=== PATIENT | male | born 1995 | race Caucasian/White ===

== ENCOUNTER 2017-12-01 17:32 | Emergency (ER) | payer OTHER ==
[2017-12-01 18:24] VITALS: BP 152/71
--- NOTE | 2017-12-01 19:13 | ED Physician Documentation ---
General Adult - HISTORIAN Historian: patient - HPI Stated Complaint: Right testicular pain Chief Complaint: General Adult Onset: days ago Timing: still present Severity: moderate Further Comments: yes (Pt is a 22 yo male with R-sided testicular pain. Pain has been occurring for several months, sometimes very intense. Pain has been getting worse and today was 9/10 in severity. Pain now radiates from the testicle up into his R side. No dysuria or discharge. No family hx testicular problems. Pt has hx IBS, depression, and has had some high blood pressure readings. Pt has been fearful to have this problem checked out, and has been putting it off.) - ROS CONST: no problems EYES/ENT: none CVS/RESP: none GI/: other (R testicular pain) MS/SKIN/LYMPH: none - PAST HX Past History: other (IBS, depression, some high blood pressure readings.) Allergies/Adverse Reactions: Allergies Allergy/AdvReac Type Severity Reaction Status Date / Time amoxicillin Allergy Mild Nausea/Vomi Verified 12/01/17 19:14 ting Home Medications: Ambulatory Orders Medication Instructions Recorded Buspirone HCl [Buspar] 10 mg PO BID u2 11/30/17 Citalopram Hydrobromide [Celexa] 40 mg PO DAILY u2 11/30/17 - SOCIAL HX Smoking History: non-smoker - FAMILY HX Family History: No - VITAL SIGNS Vital Signs: Vital Signs Temp Pulse Resp BP Pulse Ox 98.0 F 78 16 152/71 98 12/01/17 17:45 12/01/17 17:45 12/01/17 17:45 12/01/17 17:45 12/01/17 17:45 - REVIEWED ASSESSMENTS Nursing Assessment Reviewed: Yes Vitals Reviewed: Yes Progress - Progress Progress: Transfer to [facility] for scrotal u/s, Dr. Shelton. General Adult Physical Exam - PHYSICAL EXAM GENERAL APPEARANCE: moderate distress NECK: normal inspection, supple RESPIRATORY: no resp distress, chest non-tender, breath sounds normal CVS: reg rate & rhythm, heart sounds normal ABDOMEN: soft, no organomegaly, normal bowel sounds, other (Genital exam: R testical with mass (? varicocele or cyst, lower pole) tender, no redness; cremasteric reflex not elicited.) BACK: normal inspection, no CVA tenderness SKIN: warm/dry, normal color EXTREMITIES: non-tender, normal range of motion NEURO: oriented X3, motor nml, sensation nml Discharge Clincal Impression: Right testicular pain Referrals: Primary Doctor,No [Primary Care Provider] - Condition: Stable Disposition: 02 XFER SHT-TRM HOSP Decision to Admit: NO Decision Time: 19:36
== END 2017-12-01 19:34 | disposition short-term general hospital (02) ==
LOC: ED 17:32
DX: N50.819 Testicular pain, unspecified (principal)
CPT/HCPCS: 99282

== ENCOUNTER 2018-05-29 10:41 | Outpatient (CLI) | payer OTHER ==
[2018-05-29 11:20] LABS: eGFR (African) > 60; eGFR (Non-African) > 60
== END 2018-05-29 10:43 ==
LOC: LAB 10:41
PROVIDERS: ATTEND Physician Assistant
DX: R10.84 Generalized abdominal pain (principal); R19.7 Diarrhea, unspecified; R11.0 Nausea
CPT/HCPCS: 36415; 80053; 82784

== ENCOUNTER 2018-06-11 07:51 | Outpatient (CLI) | payer OTHER ==
--- NOTE | 2018-06-11 13:26 | Diagnostic Imaging Report ---
JHONATAN MUÑOZ [facility] [address] [facility].[address] [address] Report Submission Date: Jun 11, 2018 10:26:02 AM CDT Patient Study Name: LUKAS COX Date: Jun 11, 2018 8:10:38 AM CDT Modality Type: US Gender: M Description: RU : 97 Institution: [facility] Physician: JHONATAN MUÑOZ ULTRASOUND ABDOMEN LIMITED HISTORY: Right upper quadrant pain for years Transverse and longitudinal images were obtained through the right upper quadrant. No pancreatic abnormalities are noted. The liver demonstrates homogeneous echotexture without evident mass. The gallbladder is normal without gallstones or gallbladder wall thickening. The common duct is normal in caliber measuring 4.9 mm. The right kidney measures 10.4 cm in length and demonstrates no hydronephrosis or evident mass. IMPRESSION: NORMAL RIGHT UPPER QUADRANT ULTRASOUND. Electronically signed on Jun 11, 2018 10:26:02 AM CDT by: Mattie PINK
== END 2018-06-11 07:52 ==
LOC: RAD 07:51
PROVIDERS: ATTEND Physician Assistant
DX: R10.11 Right upper quadrant pain (principal)
CPT/HCPCS: 76705

== ENCOUNTER 2018-12-27 16:10 | Emergency (ER) | payer OTHER ==
--- NOTE | 2018-12-27 16:41 | ED Physician Documentation ---
General Adult - HISTORIAN Historian: patient - HPI Chief Complaint: Abdominal Pain Additional Information: Patient states that last night he developed some RLQ abd pain. No nausea or vomiting noted. NO problems with BM, no blood,constipation or diarrhea. No trouble with urination. No fever or chills noted. Walking tends to make the pain worse. Nothing seems to help the pain. No precipitating factor noted. No fever or chills noted. Patient states that he has been having some intermittent right testicular pain for several months. Has been evaluated with US and no specific abnl noted. Denies any swelling to testicle. No urethral discharge noted. Onset: hours (18 hours) Timing: still present Severity: moderate Modifying Factors: none Context: no precipitating factor noted Quality: achy/crampy sensation with some burning component at times. Location: RLQ - ROS CONST: no problems. denies: fever, chills EYES/ENT: none CVS/RESP: none GI/: abdominal pain. denies: problems urinating, vomiting, nausea, diarrhea, black stools - PAST HX Past History: none Other History: other (IBS, anxiety, depression) Surgeries/Procedures: none Immunizations: referred to PCP Allergies/Adverse Reactions: Allergies Allergy/AdvReac Type Severity Reaction Status Date / Time amoxicillin Allergy Mild Nausea/Vomi Verified 12/01/17 19:14 ting Home Medications: Ambulatory Orders Medication Instructions Recorded Ketorolac Tromethamine [Toradol] 10 mg PO Q6H PRN #10 tablet 12/27/18 - SOCIAL HX Smoking History: non-smoker Alcohol Use: none Drug Use: marijuana - FAMILY HX Family History: No - VITAL SIGNS Vital Signs: Vital Signs Temp Pulse Resp BP Pulse Ox 152/71 12/01/17 19:34 - REVIEWED ASSESSMENTS Nursing Assessment Reviewed: Yes General Adult Physical Exam - PHYSICAL EXAM GENERAL APPEARANCE: mild distress EENT: ENT inspection normal, pharynx normal, no signs of dehydration NECK: normal inspection, thyroid normal, supple RESPIRATORY: no resp distress, chest non-tender, breath sounds normal. No: wheezes, rales, rhonchi CVS: reg rate & rhythm, heart sounds normal, equal pulses, no murmur ABDOMEN: soft, no organomegaly, normal bowel sounds, no distension, tenderness (RLQ). No: rebound, guarding SKIN: warm/dry, normal color EXTREMITIES: non-tender, normal range of motion, no evidence of injury, no edema NEURO: oriented X3, CN's nml as tested, motor nml, sensation nml Discharge Clincal Impression: Abdominal pain Prescriptions: Ketorolac Tromethamine [Toradol] 10 mg PO Q6H PRN #10 tablet PRN Reason: pain Referrals: Primary Doctor,No [Primary Care Provider] - 2 Days Additional Instructions: Take toradal as needed for pain. Watch for fever or chills. If symptoms get worse to return to the ED. Watch for blood in your urine. Condition: Stable Disposition: 01 HOME, SELF-CARE Decision to Admit: NO Date of Decison to Admit: 12/27/18 Decision Time: 18:54
[2018-12-27] MEDS ORDERED: KETOROLAC TROMETHAMINE 15 MG/ML VIAL IV ONE (16:44)
[2018-12-27] MEDS ORDERED: 0.9 % SODIUM CHLORIDE 1,000 ML IV SCH (16:45)
[2018-12-27] MEDS ORDERED: 0.9 % SODIUM CHLORIDE 1,000 ML IV ONE (17:15)
[2018-12-27 17:49] LABS: MEAN CORPUSCULAR HEMOGLOBIN 30.8 pg (28.0-34.0); MONOCYTES % 5.3 % (0.0-11.0)
[2018-12-27 17:50] LABS: BASOPHILS % 0.9 (0.0-1.5); EOSINOPHILS % 1.9 % (0.0-6.8)
[2018-12-27 18:00] LABS: eGFR (Non-African) > 60
[2018-12-27 18:27] VITALS: BP 161/102
[2018-12-27 18:46] LABS: APPEARANCE,URINE CLEAR (CLEAR); COLOR,URINE YELLOW (YELLOW); OCCULT BLOOD,URINE 1+ (NEGATIVE); UROBILINOGEN URINE 0.2 Eu (0.2-1.0)
--- NOTE | 2018-12-28 04:53 | Diagnostic Imaging Report ---
TED MONET [facility] [address] Counts Include [address] Beds At [facility] [address] [place], [place]. [address] Report Submission Date: Dec 27, 2018 6:19:15 PM CDT Patient Study Name: LUKAS COX Date: Dec 27, 2018 5:30:38 PM CDT Modality Type: CT\SR Gender: M Description: CT ABD PELVIS W/ CON : 97 Institution: [facility] Physician: TED MONET CT abdomen and pelvis with contrast CLINICAL HISTORY: CT A/P W/ CONTRAST, RLQ ABD PAIN X2-3 DAYS, NO KNOWN ABDOMINAL SURGERIES OR INJURIES (Hx) / ITS.REASON RLQ abd pain Note time : 12/27/2018 6:55:23 PM User : Caron Ray CT A/P W/ CONTRAST, RLQ ABD PAIN X2-3 DAYS, NO KNOWN ABDOMINAL SURGERIES OR INJURIES (DICOM Hx) TECHNIQUE: 5 mm contiguous axial images of the abdomen and pelvis with IV contrast. With; 95 CC OMNIPAQUE @ 2.5ML/S FINDINGS: Abdomen: The liver, pancreas and spleen are normal in appearance. The gallbladder is unremarkable. Bilateral nonobstructing kidney stones are noted measuring 2 to 3 mm. The aorta is normal in caliber. The small bowel is nondistended. There is no evidence of free air or free fluid. Pelvis: The colon is normal in appearance. The distal ureters and bladder are normal. There is no evidence of free air or free fluid. The sigmoid colon and rectum are normal. Appendix is normal. No destructive osseous lesions IMPRESSION: No evidence of acute abdominal or pelvic visceral process Nephrolithiasis Electronically signed on Dec 27, 2018 6:19:15 PM CDT by: David PINK
== END 2018-12-27 19:16 | disposition home or self-care (01) ==
LOC: ED 16:10
DX: R10.31 Right lower quadrant pain (principal)
CPT/HCPCS: 36415; 74177; 80053; 81002; 83690; 85025; 96374; 99283; 99284; J7030; Q9967; S1016

== ENCOUNTER 2019-03-28 05:00 | Emergency (ER) | payer OTHER ==
[2019-04-07 17:48] LABS: eGFR (Non-African) > 60
[2019-04-07 17:49] LABS: BASOPHILS % 0.7 % (0.0-1.5); NEUTROPHILS # 3.6 # k/uL (1.4-7.7)
--- NOTE | 2019-05-28 08:26 | Diagnostic Imaging Report ---
JOEL LANG [facility] [address] [facility] [address] [place], [place]. [address] Report Submission Date: Mar 28, 2019 6:33:32 AM CDT Patient Study Name: LUKAS COX Date: Mar 28, 2019 6:09:45 AM CDT Modality Type: CT\SR Gender: M Description: CT ABDOMEN/PELVIS W/O : 97 Institution: [facility] Physician: JOEL LANG CT ABDOMEN AND PELVIS WITHOUT CONTRAST HISTORY: Known stones. Right-sided pain hematuria. Comparison: None TECHNIQUE: Helically acquired images were obtained from the hemidiaphragms to the pelvic floor without IV contrast using a stone protocol. FINDINGS: There are numerable stones within the right kidney. The largest of these measures 4 mm. There are approximately 5 stones within left kidney with the largest of these measuring 4 mm. No ureteral stones are noted but there is a 4 mm stone posteriorly within the right aspect of the bladder. The appendix is normal. There is mild constipation with increased stool mostly in the right and transverse colon. The abdominal aorta is normal in caliber. The seminal vesicles and prostate gland are unremarkable. Lung bases are clear. Chronic bilateral L5 pars defects are present without spondylolisthesis. Impression: Multiple bilateral intrarenal stones are present as described. There is no hydronephrosis or hydroureter. There is a 4 mm stone within the right posterior bladder. Mild constipation. Normal appendix. Chronic bilateral L5 pars defects Electronically signed on Mar 28, 2019 6:33:32 AM CDT by: Mattie PINK
== END 2019-03-28 07:53 ==
LOC: ED 05:00
DX: R61 Generalized hyperhidrosis (principal); R11.2 Nausea with vomiting, unspecified
CPT/HCPCS: 74176; 80053; 82150; 83690; 85025; 99282; S1016

== ENCOUNTER 2019-04-02 14:00 | Outpatient (CLI) | payer OTHER | END 2019-04-02 14:05 | disposition home or self-care (01) | LOC: LABRHC 14:00 | PROVIDERS: ATTEND Family Medicine | DX: N20.0 Calculus of kidney (principal) | CPT/HCPCS: 80377; 82365; G0481 ==

== ENCOUNTER 2019-04-02 16:47 | Outpatient (CLI) | payer OTHER | END 2019-04-02 16:52 | disposition home or self-care (01) | LOC: LAB 16:47 | PROVIDERS: ATTEND Family Medicine ==

== ENCOUNTER 2019-04-15 15:52 | Outpatient (CLI) | payer OTHER ==
[2019-04-14 14:11] VITALS: BP 121/85
[2019-04-15 16:02] LABS: BASOPHILS % 0.7 % (0.0-1.5); NEUTROPHILS # 4.7 # k/uL (1.4-7.7)
== END 2019-04-15 15:54 ==
LOC: LAB 15:52
PROVIDERS: ATTEND Family Medicine
DX: R10.84 Generalized abdominal pain (principal)
CPT/HCPCS: 36415; 85025

== ENCOUNTER 2019-04-16 17:15 | Emergency (ER) | payer SELFPAY ==
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
[2019-04-16 18:05] VITALS: BP 137/82
[2019-04-16] MEDS ORDERED: CYCLOBENZAPRINE HCL 10 MG TABLET PO ONE (18:57)
[2019-04-16] MEDS ORDERED: KETOROLAC TROMETHAMINE 60 MG/2 ML VIAL IM ONE (18:57)
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
[2019-04-17 09:44] LABS: APPEARANCE,URINE CLEAR (CLEAR); COLOR,URINE YELLOW (YELLOW); OCCULT BLOOD,URINE 1+ (NEGATIVE); PH URINE 5.5 (5.0 - 8.0); UROBILINOGEN URINE 0.2 Eu (0.2-1.0)
== END 2019-04-16 19:19 | disposition home or self-care (01) ==
LOC: ED 17:15
DX: S19.9XXA Unspecified injury of neck, initial encounter (principal); S39.92XA Unspecified injury of lower back, initial encounter; S09.90XA Unspecified injury of head, initial encounter; V89.2XXA Person injured in unspecified motor-vehicle accident, traffic, initial encounter; Y99.8 Other external cause status
CPT/HCPCS: 70450; 72125; 72131; 81002; 96372; 99284

== ENCOUNTER 2019-07-26 07:23 | Emergency (ER) | payer OTHER ==
[2019-07-26] MEDS ORDERED: PROMETHAZINE HCL 25 MG/ML VIAL ONE (07:30)
[2019-07-26] MEDS ORDERED: fentaNYL CITRATE/PF 100 MCG/2 ML INJ. ONE (07:30)
[2019-07-26] MEDS ORDERED: NORMAL SALINE 1,000 ML IV.SOLN IV ONE (07:30)
[2019-07-31 14:32] LABS: BASOPHILS % 0.6 % (0.0-1.5); NEUTROPHILS # 9.6 # k/uL (1.4-7.7)
[2019-07-31 14:33] LABS: eGFR (Non-African) > 60
[2019-07-31 14:34] LABS: APPEARANCE,URINE CLEAR (CLEAR); COLOR,URINE YELLOW (YELLOW); OCCULT BLOOD,URINE 3+ (NEGATIVE); UROBILINOGEN URINE 0.2 Eu (0.2-1.0)
--- NOTE | 2019-08-18 13:49 | Diagnostic Imaging Report ---
AKI CUNNINGHAM [facility] [id number] [facility] [address] [address] Report Submission Date: Jul 26, 2019 8:28:40 AM CDT Patient Study Name: LUKAS COX Date: Jul 26, 2019 7:51:59 AM CDT Modality Type: CT\SR Gender: M Description: CT ABD/PELVIS W/CONT : 97 Institution: [facility] Physician: AKI CUNNINGHAM CT abdomen and pelvis with intravenous contrast History: Abdominal pain Technique: Images through the abdomen and pelvis were obtained following intravenous contrast administration. Findings: The lung bases are clear. Liver, gallbladder, spleen, pancreas, kidneys and adrenal glands are normal. There is no hydronephrosis or hydroureter. Right internal urethral stent is present and appears in good position. There is no free air or fluid. There is no bowel obstruction. Appendix is not identified with confidence. Impression: Right internal ureteral stent in appropriate position. No abnormality identified. Electronically signed on Jul 26, 2019 8:28:40 AM CDT by: Avelino PINK
== END 2019-07-26 09:27 ==
LOC: ED 07:23
DX: R10.9 Unspecified abdominal pain (principal)
CPT/HCPCS: 74177; 80053; 81002; 85025; 99283; 99284; J2550; J3010; J7030; Q9967; S1016

== ENCOUNTER 2019-07-29 16:59 | Emergency (ER) | payer OTHER ==
--- NOTE | 2019-07-29 17:33 | ED Physician Documentation ---
Flank Pain - HISTORIAN Historian: patient - HPI Stated Complaint: R Kidney pain Chief Complaint: Flank Pain Additional Information: Patient presents to ED with right flank pain. Patient states he had stent place in right ureter on Sunday, July 25, 2019. Patient reports increased pain today. He was instructed to pull out the stent via string today, however, he has not done it. He reports he is out of pain medications from his procedure. Onset: hours (12) Duration: constant Timing: still present Context: denies: out of country travel Severity: severe Quality: sharp, stabbing Associated Symptoms: denies: fever, chills, nausea, vomiting Exacerbated by: nothing Relieved by: nothing - ROS CONST: no problems GI/: none CVS/RESP: none EYES/ENT: none MS/SKIN/LYMPH: none NEURO/PSYCH: none - SOCIAL HX Smoking History: cigarettes Alcohol Use: none Drug Use: none - FAMILY HX Family History: none - PAST HX Past History: kidney stones Ischemic Bowel Risk Factors: none Other History: none Surgeries/Procedures: none Medications: none - VITAL SIGNS Vital Signs: Vital Signs Temp Pulse Resp BP Pulse Ox 113 H 20 148/90 98 07/29/19 17:05 07/29/19 17:05 07/29/19 17:05 07/29/19 17:05 - REVIEWED ASSESSMENTS Nursing Assessment Reviewed: Yes Vitals Reviewed: Yes Progress - Progress Progress: 1732 Patient in room facetiming in no apparent distress until RN walks in room and then is writhing in pain. [address] Pantoja, recommends remove stent then watch for a short period of time and send patient home. ED Results Lab/Radiology - Lab Results Lab Results: UA- +3 blood, +1 leukocytes, +3 protein Abdominal Pain Physical Exam - Physical Exam General Appearance: moderate distress (in pain) EENT: JV NECK: supple RESPIRATORY: no resp distress, breath sounds normal CVS: tachycardia ABDOMEN: soft, normal bowel sounds, tenderness BACK: CVA tenderness (R) SKIN: warm/dry EXTREMITIES: non-tender, no edema NEURO: oriented X3, mood/affect nml Vital Signs: Vital Signs Temp Pulse Resp BP Pulse Ox 113 H 20 148/90 98 07/29/19 17:05 07/29/19 17:05 07/29/19 17:05 07/29/19 17:05 Discharge Clincal Impression: Encounter for removal of ureteral stent Prescriptions: Scopolamine 1 each TD Q72 #6 patch.td.3 Referrals: Benoit Elise MD [Primary Care Provider] - 2 Days Additional Instructions: 1. Tylenol 650mg every 4 hours as needed for pain 2. Drink plenty of fluids to maintain proper hydration. Avoid soda, caffeine, energy drinks and alcohol 3. Follow up with Dr. Pantoja as soon as possible 4. Return to ER for new or worsening symptoms Condition: Stable Disposition: 01 HOME, SELF-CARE Decision to Admit: NO Date of Decison to Admit: 07/29/19 Decision Time: 17:49
[2019-07-29] MEDS ORDERED: HYDROmorphone HCL/PF 1 MG/ML VIAL IM ONE (17:39)
[2019-07-29 18:24] VITALS: BP 120/77
[2019-07-30 07:38] LABS: APPEARANCE,URINE TURBID (CLEAR); COLOR,URINE RED (YELLOW); OCCULT BLOOD,URINE 3+ (NEGATIVE); UROBILINOGEN URINE 0.2 Eu (0.2-1.0)
== END 2019-07-29 18:22 | disposition home or self-care (01) ==
LOC: ED 16:59
DX: Z46.6 Encounter for fitting and adjustment of urinary device (principal)
CPT/HCPCS: 81002; 96372; 99283; 99284

== ENCOUNTER 2019-08-10 05:20 | Emergency (ER) | payer OTHER ==
[2019-08-10] MEDS: 0.9 % SODIUM CHLORIDE 1,000 ML IV ONE (05:45)
[2019-08-10] MEDS: fentaNYL CITRATE/PF 100 MCG/2 ML INJ. IV ONE (05:45)
[2019-08-10] MEDS: PROMETHAZINE HCL 25 MG/ML VIAL IM STA (05:55)
[2019-08-10] MEDS: MORPHINE SULFATE 2 MG/ML VIAL IV ONE (06:00)
[2019-08-10] MEDS ORDERED: TAMSULOSIN HCL 0.4 MG CAP.ER.24H PO ONE (06:04)
[2019-08-10] MEDS: MORPHINE SULFATE 4 MG/ML VIAL IV ONE (06:08)
[2019-08-10 06:12] LABS: BASOPHILS % 0.6 % (0.0-1.5); NEUTROPHILS # 4.9 # k/uL (1.4-7.7)
[2019-08-10] MEDS: ONDANSETRON HCL/PF 4 MG/ 2ML VIAL IVP ONE (06:18)
[2019-08-10 06:20] LABS: eGFR (Non-African) > 60
[2019-08-10] MEDS: PROMETHAZINE HCL 25 MG/ML VIAL ONE (06:31)
[2019-08-10] MEDS: MORPHINE SULFATE 4 MG/ML VIAL ONE (06:31)
[2019-08-10 06:35] LABS: OCCULT BLOOD,URINE 3+ (NEGATIVE); UROBILINOGEN URINE 0.2 Eu (0.2-1.0)
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
[2019-08-10] MEDS ORDERED: MORPHINE SULFATE 4 MG/ML VIAL IV PRN (06:56)
[2019-08-10] MEDS ORDERED: ONDANSETRON HCL/PF 4 MG/ 2ML VIAL IVP PRN (06:57)
[2019-08-10] MEDS ORDERED: 0.9 % SODIUM CHLORIDE 1,000 ML IV SCH (07:00)
[2019-08-10 07:15] VITALS: BP 132/82
[2019-08-10] MEDS ORDERED: TAMSULOSIN HCL 0.4 MG CAP.ER.24H PO SCH (09:00)
== END 2019-08-10 07:14 | disposition other institution (70) ==
LOC: ED 05:20
DX: N20.0 Calculus of kidney (principal); F12.90 Cannabis use, unspecified, uncomplicated
CPT/HCPCS: 80053; 81002; 83690; 85025; 96361; 96372; 96374; 96375; 96376; 99283; 99284; J2270; J2550; J3010; J7030; S1016

== ENCOUNTER 2019-08-10 07:05 | Inpatient (IN) | payer OTHER ==
--- NOTE | 2019-08-10 08:27 | History and Physical Report ---
History of Present Illnes - History of Present Illness Reason for Visit: Abdominal pain History of Present Illness: This is a 23 year old male admitted with c/o abdominal pain. He has had multiple ER visits for flank pain and has had a renal stent placed in [place] at . He has had 7 CT scans of the abdomen and pelvis in the past year and as a result, the ER provider did not feel that it was prudent to perform another CT. It is of note that his clinic chart has a report showing multiple providers of narcotics in the past year as well as having prescriptions filled at [facility] in [place] as well as [facility] in [place]. - Past Medical History Gastrointestinal: Irritable bowel disease Psych: Anxiety - Past Surgical History Past Surgical History: None - Past Social History Smoke: 1 pack per day Alcohol: None Drugs: None (denies) Lives: Alone Domestic Violence: Negative - Health Maintenance Health Maintenance: Cholesterol Influenza Vaccine: Current for this Influenza Season Pneumonia Vaccine: Yes - Unable to Obtain History Unable to Obtain: No Review of Systems - Review of Systems Constitutional: Sweats. negative: Fever, Chills Eyes: negative: pain ENT: negative: Ear Pain Respiratory: negative: Cough Cardiovascular: negative: Chest Pain Gastrointestinal: Nausea, Vomiting, Abdominal Pain (left flank and left hemiabdomen. NABS) Genitourinary: negative: Dysuria Musculoskeletal: negative: Neck Pain, Shoulder Pain Skin: negative: Rash Neurological: negative: Weakness - Medications/Allergies Allergies/Adverse Reactions: Allergies Allergy/AdvReac Type Severity Reaction Status Date / Time amoxicillin Allergy Mild Nausea/Vomi Verified 08/10/19 06:28 ting NSAIDS (Non-Steroidal Allergy Verified 08/10/19 06:28 Anti-Inflamma Exam - Exam Vital Signs: Vital Signs (72 hours) 08/10/19 08/10/19 05:27 07:25 Temperature 98 F Pulse Rate [ 84 Left] Respiratory 24 Rate Blood Pressure 155/90 Blood Pressure 155/90 146/96 [Left Arm] O2 Sat by Pulse 97 Oximetry General: Alert, Oriented to Person, Oriented to Place, Moderate distress, Discheveled, Thin HEENT: Atraumatic, PERRLA, EOMI, Poor Dentition Neck: No: Stridor Lungs: Clear to auscultation, Normal air movement, Speaks full Sentences Cardiovascular: Regular rate, Normal S1, Normal S2 Murmur: No: Systolic Murmur Murmur Location: No: [place] Abdomen: Normal bowel sounds, Soft, Other (tenderness in the left hemiabdomen) Genitourinary: No: Other Male Genitourinary: No: Other Female Genitourinary: No: Other Integumentary: Normal, [place], Warm Extremities: No clubbing, No cyanosis, No edema Neurological: Normal speech. No: Right Sided Weakness, Left Sided Weakness, Generalized Weakness Psych/Mental Status: Mental status NL Assessment/Plan - Assessment/Plan (1) Abdominal pain Status: Acute Current Visit: No Qualifiers: Abdominal location: right lower quadrant Qualified Code(s): R10.31 - Right lower quadrant pain Assessment: Possibly due to movement of a left renal stone (stent is on the right). Hold of on any further CT scans, as he has had 7 in the past year. (2) PUD (peptic ulcer disease) Status: Acute Current Visit: Yes Assessment: Start IV protonix (3) Bilateral renal stones Status: Acute Current Visit: No Assessment: Following with urology (4) Nausea and vomiting Status: Acute Current Visit: Yes Qualifiers: Vomiting type: unspecified Vomiting Intractability: intractable Qualified Code(s): R11.2 - Nausea with vomiting, unspecified Assessment: Ondansetron IV for nausea VTE Assessment - RISK FACTOR SCORE VTE RISK FACTOR SCORES: OTHER - RISK VTE LOW RISK: SCORE OF 1 OR LESS (RISK PROXIMAL DVT 0.4%) NO PROPHYLAXIS NEEDED (Not indicated)
[2019-08-10] MEDS ORDERED: 0.9 % SODIUM CHLORIDE 1,000 ML IV SCH (08:30)
[2019-08-10] MEDS ORDERED: MORPHINE SULFATE 2 MG/ML VIAL IV PRN (08:30)
[2019-08-10] MEDS ORDERED: ONDANSETRON HCL/PF 4 MG/ 2ML VIAL IVP PRN (08:30)
[2019-08-10] MEDS ORDERED: 0.9 % SODIUM CHLORIDE 1,000 ML IV ONE (09:05)
[2019-08-10] MEDS ORDERED: MORPHINE SULFATE 2 MG/ML VIAL ONE (09:06)
[2019-08-10] MEDS ORDERED: ONDANSETRON HCL/PF 4 MG/ 2ML VIAL ONE (09:06)
[2019-08-10 10:33] VITALS: BP 144/88; BMI 17.5
[2019-08-10] MEDS ORDERED: TAMSULOSIN HCL 0.4 MG CAP.ER.24H PO SCH (18:00)
== END 2019-08-10 13:00 | disposition short-term general hospital (02) | DRG 694 ==
LOC: SOUTH 07:05
PROVIDERS: ADMIT Family Medicine; ATTEND Family Medicine
DX: N20.0 Calculus of kidney (principal); K58.9 Irritable bowel syndrome, unspecified; F41.9 Anxiety disorder, unspecified; F17.210 Nicotine dependence, cigarettes, uncomplicated; K27.9 Peptic ulcer, site unspecified, unspecified as acute or chronic, without hemorrhage or perforation; Z88.6 Allergy status to analgesic agent; Z88.0 Allergy status to penicillin
CPT/HCPCS: J2270; J2405; J7030; 99238; S1016